=== PATIENT | female | born 1955 ===

== ENCOUNTER 2019-11-13 06:00 | Day surgery (SDC) | payer OTHER ==
[~2019-11-13 06:00] MED LIST: COZAAR25 MG PO; CYMBALTA20 MG PO; GABAPENTIN800 M1 PO; OMEPRAZOLE MAGN20 MG PO; RESTORIL30 M1 PO; SYNTHROID50 MCG PO; ULTRAM50 MG PO; VYTORIN 10-201 EACH PO; WELLBUTRIN SR100 MG PO
== END 2019-11-13 10:30 | disposition home or self-care (01) ==
LOC: CIR.AMB 06:00 → ADM 12:00 → CIR.AMB 12:00
PROVIDERS: ATTEND Surgery Surgery of the Hand
DX: M65.841 Other synovitis and tenosynovitis, right hand (principal); Z20.828 Contact with and (suspected) exposure to other viral communicable diseases

== ENCOUNTER 2019-12-04 05:55 | Day surgery (SDC) | payer OTHER | END 2019-12-04 10:05 | disposition home or self-care (01) | LOC: CIR.AMB 05:55 → ADM 09:00 → CIR.AMB 09:00 | PROVIDERS: ATTEND Surgery Surgery of the Hand | DX: M67.844 Other specified disorders of tendon, left hand (principal); M65.342 Trigger finger, left ring finger; Z20.828 Contact with and (suspected) exposure to other viral communicable diseases ==